=== PATIENT | male | born 1980 | race Caucasian/White ===

== ENCOUNTER 2019-10-06 09:20 | Day surgery (SDC) | payer BC ==
[~2019-10-06] VITALS: Ht 182.9 cm; Wt 99.8 kg
[~2019-10-06 09:20] MED LIST: ALBU1AER4 IN; HYDR-4833 PO; IPRIH INH; LAMO200T34 PO; LURA80TA PO; ONDA-143 PO; QUET200T4 PO; SERT100T PO
[2019-10-06] MEDS ORDERED: SODIUM CHLORIDE LOCK 10 ML ONE (09:58)
[2019-10-06] MEDS ORDERED: fentaNYL CITRATE 100 MCG/2 ML VL ONE (09:58)
[2019-10-06] MEDS ORDERED: MIDAZOLAM HCL 1MG/1ML-2 ML VIAL ONE (09:58)
[2019-10-06] MEDS ORDERED: PROPOFOL 10 MG/ML 20 ML IV ONE (09:58)
[2019-10-06] MEDS ORDERED: ONDANSETRON HCL 4 MG/2 ML VIAL ONE (09:58)
[2019-10-06] MEDS ORDERED: ceFAZolin 1GM/50ML 50 ML IV ONE (10:46)
[2019-10-06] MEDS ORDERED: fentaNYL CITRATE 100 MCG/2 ML VL IV PRN (11:00)
[2019-10-06] MEDS ORDERED: HYDROmorphone HCL 2 MG/ML VL IV PRN (11:00)
[2019-10-06] MEDS ORDERED: MORPHINE SULF INJ 2 MG/ML SYRINGE 1ML IV PRN (11:00)
[2019-10-06] MEDS ORDERED: ONDANSETRON HCL 4 MG/2 ML VIAL IV PRN (11:00)
[2019-10-06 12:07] VITALS: BP 128/74
== END 2019-10-06 12:20 | disposition home or self-care (01) ==
LOC: GI 09:20
PROVIDERS: ATTEND Internal Medicine
DX: R10.30 Lower abdominal pain, unspecified (principal); D12.3 Benign neoplasm of transverse colon; K64.2 Third degree hemorrhoids; K64.1 Second degree hemorrhoids; I25.10 Atherosclerotic heart disease of native coronary artery without angina pectoris; I25.2 Old myocardial infarction; F31.9 Bipolar disorder, unspecified; J43.9 Emphysema, unspecified; E66.9 Obesity, unspecified; F20.9 Schizophrenia, unspecified; Z86.010 Personal history of colon polyps; Z68.29 Body mass index [BMI] 29.0-29.9, adult; Z98.890 Other specified postprocedural states; Z79.899 Other long term (current) drug therapy; Z88.8 Allergy status to other drugs, medicaments and biological substances; Z11.59 Encounter for screening for other viral diseases
CPT/HCPCS: 45385; 87635; J0690; J2250; J2405; J2704; J3010; J7030; U0003